=== PATIENT | male | born 1985 | race Hispanic/Latino ===

== ENCOUNTER 2023-01-07 13:02 | Emergency (ER) | payer SELFPAY ==
[~2023-01-07] VITALS: Ht 170.2 cm; Wt 83.9 kg
[2023-01-07 13:05] VITALS: O2SAT 99
[2023-01-07] MEDS ORDERED: SODIUM CHLORIDE 0.9% 1000ML 1,000 ML IV STA (13:11)
[2023-01-07 14:01] LABS: BASOPHILS % 0.1 % (0.0-1.0); EOSINOPHILS % 0.1 % (0.0-6.0); HEMATOCRIT 40.5 % (38.2-49.6); LYMPHOCYTES % 6.1 % (18.0-39.1); MEAN CORPUSCULAR HEMOGLOBIN 29.4 pg (28-32); MEAN CORPUSCULAR HGB CONC 34.6 g/dL (31-35); MEAN CORPUSCULAR VOLUME 85.1 fL (81-99); MONOCYTES # (AUTO) 1.3 (0.2-0.8); NEUTROPHILS # (AUTO) 13.4 (2.1-6.9); NEUTROPHILS % 85.1 % (38.7-80.0); PLATELET COUNT 192 x10e3/uL (140-360); RED BLOOD COUNT 4.76 x10e6/uL (4.3-5.7); RED CELL DISTRIBUTION WIDTH 14.9 % (11.7-14.4)
[2023-01-07 14:22] LABS: ALBUMIN 3.4 g/dL (3.5-5.0); ALBUMIN/GLOBULIN RATIO 0.7 (0.8-2.0); ANION GAP 15.6 mmol/L (8-16); CALCIUM 9.1 mg/dL (8.4-10.2); CREATININE, SERUM 0.78 mg/dL (0.72-1.25); POTASSIUM 3.6 mmol/L (3.5-5.1)
[2023-01-07] MEDS ORDERED: CLINDAMYCIN HC150 MG PO (15:36)
== END 2023-01-07 15:40 | disposition home or self-care (01) ==
LOC: ER 13:12
DX: L03.116 Cellulitis of left lower limb (principal); T86.822 Skin graft (allograft) (autograft) infection; Y82.8 Other medical devices associated with adverse incidents; Y92.9 Unspecified place or not applicable
CPT/HCPCS: 36415; 80053; 85025; 87040; 99284; J0696; J7030

== ENCOUNTER 2023-01-09 13:02 | Inpatient (IN) | payer OTHER ==
[~2023-01-09] VITALS: Ht 170.2 cm; Wt 83.9 kg
[~2023-01-09 13:02] MED LIST: CLINDAMYCIN HC150 MG PO; KETOROLAC TROMETHAMINE 30 MG/ML VIAL ONE; LIDOCAINE HCL 2% LOCAL INJ 5 ML SDV VIAL INJ ONE; ONDANSETRON HCL INJ 2MG/ML 2ML 2 MG/ML VIAL ONE; POVIDONE IODINE 0.05% 0.05 % ML PO ONE; PROPOFOL IV EMULSION 10 MG/ML 20 ML VIAL ONE
[2023-01-09] MEDS ORDERED: IOPAMIDOL 370 MG/ML 100 ML INFUS..BTL INJ ONE (13:38)
[2023-01-09 13:58] LABS: BASOPHILS % 0.2 % (0.0-1.0); EOSINOPHILS # (AUTO) 0.1 (0.0-0.4); EOSINOPHILS % 0.5 % (0.0-6.0); HEMATOCRIT 38.6 % (38.2-49.6); HEMOGLOBIN 13.5 g/dL (14.0-18.0); LYMPHOCYTES # (AUTO) 1.2 (1.0-3.2); LYMPHOCYTES % 7.2 % (18.0-39.1); MEAN CORPUSCULAR HEMOGLOBIN 29.6 pg (28-32); MEAN CORPUSCULAR VOLUME 84.6 fL (81-99); MONOCYTES # (AUTO) 1.5 (0.2-0.8); NEUTROPHILS # (AUTO) 13.7 (2.1-6.9); NEUTROPHILS % 82.5 % (38.7-80.0); PLATELET COUNT 223 x10e3/uL (140-360); RED BLOOD COUNT 4.56 x10e6/uL (4.3-5.7); RED CELL DISTRIBUTION WIDTH 15.7 % (11.7-14.4)
[2023-01-09] MEDS: HYDROCODONE/APAP 5MG-325MG TAB PO PRN ×2 (14:12→23:38)
[2023-01-09] MEDS: Vancomycin IV 1 GM in SODIUM CHLORIDE 0.9% 250ML 250 ML IV SCH ×2 (14:14→21:29)
[2023-01-09] MEDS ORDERED: SODIUM CHLORIDE FLUSH 10 ML SYR INJ PRN (14:45)
[2023-01-09] MEDS ORDERED: ONDANSETRON HCL INJ 2MG/ML 2ML 2 MG/ML VIAL IV PRN ×2 (14:45→17:00)
[2023-01-09 15:16] LABS: ALBUMIN 2.6 g/dL (3.5-5.0); ALBUMIN/GLOBULIN RATIO 0.7 (0.8-2.0); ANION GAP 14.6 mmol/L (8-16); CALCIUM 8.8 mg/dL (8.4-10.2); CREATININE, SERUM 0.63 mg/dL (0.72-1.25); POTASSIUM 3.6 mmol/L (3.5-5.1)
[2023-01-09] MEDS ORDERED: TEMAZEPAM 15 MG CAP PO PRN (17:00)
[2023-01-09] MEDS ORDERED: HYDRALAZINE HCL 20 MG/ML VIAL IV PRN (17:00)
[2023-01-09] MEDS ORDERED: POLYETHYLENE GLYCOL 3350 17 GM PACK PO PRN (17:00)
[2023-01-09] MEDS: OYST-CAL-D 500MG TABLET PO SCH (18:49)
[2023-01-09] MEDS: Morphine 4mg INJECTION 4 MG/ML INJ IV PRN ×2 (18:49→21:30)
[2023-01-09] MEDS: MAGNESIUM OXIDE 400 MG TAB PO SCH (18:50)
[2023-01-09] MEDS: DOCUSATE SODIUM 100 MG CAP PO SCH (18:50)
[2023-01-09] MEDS: ZINC SULFATE 50 MG CAP PO SCH (18:50)
[2023-01-09] MEDS: ASCORBIC ACID 500 MG TAB PO SCH (18:50)
[2023-01-09] MEDS: SODIUM CHLORIDE 0.9% 1000ML 1,000 ML IV SCH (19:31)
[2023-01-09 21:25] VITALS: BP 142/84; PULSE 84; RESP 18; TEMP 99.7; O2SAT 98
[2023-01-09] MEDS: ACETAMINOPHEN 325 MG TAB PO PRN (21:29)
[2023-01-09 21:36] VITALS: BP 142/84; PULSE 84; RESP 18; TEMP 99.7; O2SAT 98
[2023-01-09 21:51] VITALS: BP 142/84; PULSE 84; RESP 18; TEMP 99.7; O2SAT 98
[2023-01-09 23:01] VITALS: BP 142/84; RESP 18; TEMP 99.7; O2SAT 98
[2023-01-10 00:56] VITALS: BP 116/58; PULSE 79; RESP 17; TEMP 98; O2SAT 95
[2023-01-10 04:00] VITALS: BP 126/79; PULSE 74; RESP 17; TEMP 98.2; O2SAT 98
[2023-01-10 05:38] LABS: BASOPHILS # (AUTO) 0.1 (0.0-0.1); BASOPHILS % 0.5 % (0.0-1.0); EOSINOPHILS # (AUTO) 0.1 (0.0-0.4); EOSINOPHILS % 0.5 % (0.0-6.0); HEMATOCRIT 38.7 % (38.2-49.6); LYMPHOCYTES # (AUTO) 1.2 (1.0-3.2); LYMPHOCYTES % 8.6 % (18.0-39.1); MEAN CORPUSCULAR HEMOGLOBIN 29.2 pg (28-32); MEAN CORPUSCULAR HGB CONC 33.6 g/dL (31-35); MONOCYTES # (AUTO) 1.4 (0.2-0.8); MONOCYTES % 10.3 % (4.4-11.3); NEUTROPHILS # (AUTO) 10.5 (2.1-6.9); NEUTROPHILS % 78.8 % (38.7-80.0); PLATELET COUNT 276 x10e3/uL (140-360); RED BLOOD COUNT 4.45 x10e6/uL (4.3-5.7); RED CELL DISTRIBUTION WIDTH 15.7 % (11.7-14.4)
[2023-01-10] MEDS: ACETAMINOPHEN 325 MG TAB PO PRN (05:52)
[2023-01-10] MEDS: Morphine 4mg INJECTION 4 MG/ML INJ IV PRN ×2 (05:53→17:55)
[2023-01-10 06:15] LABS: ALBUMIN 2.6 g/dL (3.5-5.0); ALBUMIN/GLOBULIN RATIO 0.6 (0.8-2.0); ANION GAP 12.6 mmol/L (8-16); CHOL/HDL RATIO 10.2 (3.9-4.7); CREATININE, SERUM 0.79 mg/dL (0.72-1.25); MAGNESIUM 1.9 MG/DL (1.3-2.1); PHOSPHORUS 3.1 MG/DL (2.3-4.7); POTASSIUM 3.6 mmol/L (3.5-5.1)
[2023-01-10 06:19] LABS: THYROID STIMULATING HORMONE 1.638 uIU/mL (0.350-4.940)
[2023-01-10] MEDS: FAMOTIDINE 20 MG TAB PO SCH ×2 (07:30→16:30)
[2023-01-10] MEDS: Vancomycin IV 1 GM in SODIUM CHLORIDE 0.9% 250ML 250 ML IV SCH ×2 (07:59→21:40)
[2023-01-10] MEDS: HYDROCODONE/APAP 5MG-325MG TAB PO PRN ×2 (08:01→21:33)
[2023-01-10] MEDS: DOCUSATE SODIUM 100 MG CAP PO SCH ×2 (08:09→17:00)
[2023-01-10] MEDS: MAGNESIUM OXIDE 400 MG TAB PO SCH ×2 (08:13→17:00)
[2023-01-10] MEDS: ZINC SULFATE 50 MG CAP PO SCH ×2 (08:13→17:00)
[2023-01-10] MEDS: OYST-CAL-D 500MG TABLET PO SCH ×2 (08:13→17:00)
[2023-01-10] MEDS: MULTIVITAMINS/MINERALS TAB PO SCH (08:13)
[2023-01-10] MEDS: ASCORBIC ACID 500 MG TAB PO SCH ×2 (08:13→17:00)
[2023-01-10 08:45] VITALS: BP 134/77; PULSE 71; RESP 16; TEMP 98.1; O2SAT 98
[2023-01-10 13:07] VITALS: BP 126/75; PULSE 73; RESP 16; TEMP 98; O2SAT 98
[2023-01-10 16:53] VITALS: BP 118/67; PULSE 73; RESP 16; TEMP 98.1; O2SAT 100
[2023-01-10] MEDS: SODIUM CHLORIDE 0.9% 1000ML 1,000 ML IV SCH (17:56)
[2023-01-10 20:00] VITALS: BP 134/70; PULSE 82; RESP 17; TEMP 98.5; O2SAT 98
[2023-01-11] VITALS (8 sets, daily range): BP systolic 112–138; BP diastolic 65–78; PULSE 63–95; RESP 17–19; TEMP 97.3–98.3; O2SAT 97–100
[2023-01-11 05:03] LABS: BASOPHILS % 0.3 % (0.0-1.0); EOSINOPHILS # (AUTO) 0.1 (0.0-0.4); EOSINOPHILS % 0.8 % (0.0-6.0); HEMATOCRIT 37.4 % (38.2-49.6); HEMOGLOBIN 12.9 g/dL (14.0-18.0); LYMPHOCYTES # (AUTO) 1.4 (1.0-3.2); MEAN CORPUSCULAR HEMOGLOBIN 29.1 pg (28-32); MEAN CORPUSCULAR HGB CONC 34.5 g/dL (31-35); MEAN CORPUSCULAR VOLUME 84.4 fL (81-99); MONOCYTES # (AUTO) 1.2 (0.2-0.8); MONOCYTES % 10.8 % (4.4-11.3); NEUTROPHILS # (AUTO) 8.5 (2.1-6.9); NEUTROPHILS % 74.4 % (38.7-80.0); PLATELET COUNT 257 x10e3/uL (140-360); RED BLOOD COUNT 4.43 x10e6/uL (4.3-5.7); RED CELL DISTRIBUTION WIDTH 15.7 % (11.7-14.4)
[2023-01-11 05:20] LABS: ANION GAP 13.8 mmol/L (8-16); CALCIUM 9.4 mg/dL (8.4-10.2); CREATININE, SERUM 0.68 mg/dL (0.72-1.25); POTASSIUM 3.8 mmol/L (3.5-5.1)
[2023-01-11] MEDS: FAMOTIDINE 20 MG TAB PO SCH ×2 (07:30→16:30)
[2023-01-11] MEDS: ASCORBIC ACID 500 MG TAB PO SCH ×2 (09:00→17:00)
[2023-01-11] MEDS: MAGNESIUM OXIDE 400 MG TAB PO SCH ×2 (09:00→17:00)
[2023-01-11] MEDS: OYST-CAL-D 500MG TABLET PO SCH ×2 (09:00→17:00)
[2023-01-11] MEDS: ZINC SULFATE 50 MG CAP PO SCH ×2 (09:00→17:00)
[2023-01-11] MEDS: MULTIVITAMINS/MINERALS TAB PO SCH (09:00)
[2023-01-11] MEDS: DOCUSATE SODIUM 100 MG CAP PO SCH ×2 (09:00→17:00)
[2023-01-11] MEDS: HYDROCODONE/APAP 5MG-325MG TAB PO PRN (09:16)
[2023-01-11 09:35] LABS: INR 1.08; PROTHROMBIN TIME 14.7 seconds (11.9-14.5)
[2023-01-11] MEDS: Vancomycin IV 1 GM in SODIUM CHLORIDE 0.9% 250ML 250 ML IV SCH ×2 (09:48→21:24)
[2023-01-11] MEDS: SODIUM CHLORIDE 0.9% 1000ML 1,000 ML IV SCH (09:49)
[2023-01-11] MEDS ORDERED: ONDANSETRON HCL 4 MG ORAL DISINTEGRATING TAB PO PRN (12:00)
[2023-01-11] MEDS ORDERED: MIDAZOLAM HCL 2 MG/2 ML VIAL ONE (12:10)
[2023-01-11] MEDS ORDERED: FENTANYL CITRATE/PF 100MCG/2 ML INJ ONE (12:10)
[2023-01-11] MEDS ORDERED: Vancomycin IV 1 GM VIAL ONE (16:06)
[2023-01-11] MEDS ORDERED: ACETAMINOPHEN 1000 MG/100 ML 100 ML IV ONE (18:18)
[2023-01-11] MEDS: Morphine 4mg INJECTION 4 MG/ML INJ IV PRN (21:18)
[2023-01-12] VITALS (8 sets, daily range): BP systolic 106–132; BP diastolic 59–74; PULSE 68–89; RESP 17–18; TEMP 97.9–98.2; O2SAT 95–99
[2023-01-12] MEDS: HYDROCODONE/APAP 5MG-325MG TAB PO PRN ×3 (01:09→14:42)
[2023-01-12 05:43] LABS: BASOPHILS % 0.4 % (0.0-1.0); EOSINOPHILS # (AUTO) 0.1 (0.0-0.4); EOSINOPHILS % 1.5 % (0.0-6.0); HEMATOCRIT 37.9 % (38.2-49.6); LYMPHOCYTES # (AUTO) 1.4 (1.0-3.2); LYMPHOCYTES % 15.1 % (18.0-39.1); MEAN CORPUSCULAR HEMOGLOBIN 29.3 pg (28-32); MEAN CORPUSCULAR HGB CONC 34.3 g/dL (31-35); MEAN CORPUSCULAR VOLUME 85.4 fL (81-99); MONOCYTES # (AUTO) 0.9 (0.2-0.8); MONOCYTES % 9.3 % (4.4-11.3); NEUTROPHILS # (AUTO) 6.7 (2.1-6.9); NEUTROPHILS % 70.3 % (38.7-80.0); PLATELET COUNT 254 x10e3/uL (140-360); RED BLOOD COUNT 4.44 x10e6/uL (4.3-5.7); RED CELL DISTRIBUTION WIDTH 15.6 % (11.7-14.4)
[2023-01-12 06:16] LABS: ANION GAP 12.2 mmol/L (8-16); CREATININE, SERUM 0.74 mg/dL (0.72-1.25); POTASSIUM 4.2 mmol/L (3.5-5.1)
[2023-01-12] MEDS: Vancomycin IV 1 GM in SODIUM CHLORIDE 0.9% 250ML 250 ML IV SCH ×2 (08:48→20:33)
[2023-01-12] MEDS: DOCUSATE SODIUM 100 MG CAP PO SCH ×2 (08:49→17:19)
[2023-01-12] MEDS: OYST-CAL-D 500MG TABLET PO SCH ×2 (08:49→17:19)
[2023-01-12] MEDS: ZINC SULFATE 50 MG CAP PO SCH ×2 (08:50→17:20)
[2023-01-12] MEDS: ASCORBIC ACID 500 MG TAB PO SCH ×2 (08:50→17:19)
[2023-01-12] MEDS: MULTIVITAMINS/MINERALS TAB PO SCH (08:50)
[2023-01-12] MEDS: FAMOTIDINE 20 MG TAB PO SCH ×2 (08:51→17:20)
[2023-01-12] MEDS: MAGNESIUM OXIDE 400 MG TAB PO SCH ×2 (08:51→17:00)
[2023-01-12] MEDS: Morphine 4mg INJECTION 4 MG/ML INJ IV PRN (20:50)
[2023-01-13] MEDS: Morphine 4mg INJECTION 4 MG/ML INJ IV PRN (01:18)
[2023-01-13 01:21] VITALS: BP 111/77; PULSE 69; RESP 17; TEMP 98.6; O2SAT 98
[2023-01-13 04:52] VITALS: BP 108/79; PULSE 72; RESP 18; TEMP 98.3; O2SAT 99
[2023-01-13 08:09] VITALS: BP 102/67; PULSE 99; RESP 20; TEMP 98.1; O2SAT 96
[2023-01-13] MEDS: Vancomycin IV 1 GM in SODIUM CHLORIDE 0.9% 250ML 250 ML IV SCH (09:09)
[2023-01-13] MEDS: ZINC SULFATE 50 MG CAP PO SCH (10:33)
[2023-01-13] MEDS: ASCORBIC ACID 500 MG TAB PO SCH (10:34)
[2023-01-13] MEDS: FAMOTIDINE 20 MG TAB PO SCH (10:34)
[2023-01-13] MEDS: OYST-CAL-D 500MG TABLET PO SCH (10:34)
[2023-01-13] MEDS: MAGNESIUM OXIDE 400 MG TAB PO SCH (10:34)
[2023-01-13] MEDS: MULTIVITAMINS/MINERALS TAB PO SCH (10:34)
[2023-01-13] MEDS: HYDROCODONE/APAP 5MG-325MG TAB PO PRN (10:38)
[2023-01-13 11:43] VITALS: BP 114/69; PULSE 63; RESP 20; TEMP 98; O2SAT 98
[2023-01-13 15:47] VITALS: BP 108/71; PULSE 68; RESP 18; TEMP 98.6; O2SAT 96
[2023-01-13] MEDS ORDERED: Vancomycin IV 2 GM in SODIUM CHLORIDE 0.9% 500ML 500 ML IV SCH (21:00)
== END 2023-01-13 17:25 | disposition home or self-care (01) | DRG 580 ==
LOC: ER 13:08 → ERHOLD 14:45 → MED/SURG2 20:39
PROVIDERS: ADMIT Internal Medicine; ATTEND Internal Medicine
PROC: 0JDP0ZZ Extraction of Left Lower Leg Subcutaneous Tissue and Fascia, Open Approach (ICD-10-PCS; principal; 2023-01-11 17:05)
PROC: 02HV33Z Insertion of Infusion Device into Superior Vena Cava, Percutaneous Approach (ICD-10-PCS; 2023-01-12)
PROC: B548ZZA Ultrasonography of Superior Vena Cava, Guidance (ICD-10-PCS; 2023-01-12)
DX: L03.116 Cellulitis of left lower limb (principal); E87.20 Acidosis, unspecified; L02.416 Cutaneous abscess of left lower limb; K21.9 Gastro-esophageal reflux disease without esophagitis; F17.210 Nicotine dependence, cigarettes, uncomplicated; I87.2 Venous insufficiency (chronic) (peripheral); R74.01 Elevation of levels of liver transaminase levels
CPT/HCPCS: 36415; 36569; 71045; 80048; 80053; 80061; 80202; 83036; 83735; 84100; 84443; 85025; 85610; 85651; 86140; 87071; 87075; 87186; 87205; 99252; 99284; J1885; J2001; J2250; J2270; J2405; J2543; J7030; J7050; Q9967